=== PATIENT | male | born 1955 | race Caucasian/White ===

== ENCOUNTER 2019-09-20 09:57 | Outpatient (CLI) | payer BC, SELFPAY ==
--- NOTE | 2019-09-20 | XR_ITS ---
WS: [id number] CHEST 2 VIEWS HISTORY: LOG FELL ON HIM WEDNESDAY, CHEST WALL PAIN COMPARISON: 06/13/2019 Lungs: Clear with no abnormality. No pleural effusion or pneumothorax. Cardiac size: Normal. Mediastinum/Aorta: Mild atherosclerosis aorta. Bones: Mild thoracic spondylosis. No acute fractures are identified. XR/XR chest 2V* [id number] IMPRESSION: Mild atherosclerosis aorta. No rib fractures identified.
== END 2019-09-20 09:58 | disposition home or self-care (01) ==
LOC: RADOUTREAD 15:48
PROVIDERS: Family Provider Internal Medicine; PCP Internal Medicine; Visit Provider Internal Medicine
DX: I70.0 Atherosclerosis of aorta (principal); R07.89 Other chest pain

== ENCOUNTER 2019-10-09 10:39 | Outpatient (CLI) | payer BC, SELFPAY ==
--- NOTE | 2019-10-09 | XR_ITS ---
WS: [id number] SACRUM TECHNIQUE: 3 views of the sacrum and coccyx CLINICAL INFORMATION: LEFT LOW BACK PAIN COMPARISON: None. FINDINGS: Both hips are normal in appearance. Normal pubic rami. Normal visualized sacrum and sacrococcygeal ju nction. XR/XR sacrum coccyx min 2V [id number] IMPRESSION: Normal coccyx and sacrum.
--- NOTE | 2019-10-09 | XR_ITS ---
WS: [id number] LUMBAR SPINE TECHNIQUE: 5 views of the lumbar spine CLINICAL INFORMATION: LEFT LOW BACK PAIN COMPARISON: None. FINDINGS: Five [id number] lumbar vertebral bodies. Disc space narrowing throughout the lumbar spine L2-L3 L3-L4 L4-L5 and L5-S1. Moderate facet arthropathy lower lumbar spine. No acute compression fractures. No instability on flexion-extension. No spondylolisthesis. Visualized sacroiliac joints are normal. Normal visualized soft tissues. Partia lly visualized bowel gas pattern is normal. XR/XR lumbar spine min 4V [id number] IMPRESSION: Moderate spondylitic changes. No acute compression fractures.
== END 2019-10-09 10:40 | disposition home or self-care (01) ==
PROVIDERS: Family Provider Internal Medicine; PCP Internal Medicine; Visit Provider Nurse Practitioner Family
DX: Z76.89 Persons encountering health services in other specified circumstances (principal)

== ENCOUNTER 2019-12-18 08:44 | Outpatient (CLI) | payer BC, SELFPAY ==
--- NOTE | 2019-12-18 08:59 | CT_ITS ---
WS: [id number] CT ABDOMEN AND PELVIS WITH CONTRAST HISTORY: LLQ ABDOMINAL PAIN TECHNIQUE: Imaging performed of the abdomen and pelvis with IV contrast. Single phase imaging of the abdomen. Coronal and sagittal reformats are submitted. All CT scans at [facility] use at least one of these dose optimization techniques: automated exposure control; mA and/or kV adjustment per patient size (includes targeted exams where dose is matched to clinical indication); or iterativ e reconstruction. IV CONTRAST: Omnipaque 300; 95 mL IV. Oral contrast: Yes. DLP: 1153.1 mGycm COMPARISON: 12/20/2013 Lower thorax: Benign granuloma in the lingula. Heart is normal size. Small amount of oral contrast in the distal esophagus. Liver/biliary system: Normal size with no intrahepatic dilatation. Gallbladder: Normal. No gallstones or wall thickening. No pericholecystic fluid. Pancreas: Normal. Spleen: Normal. Adrenal glands: Normal. Right kidney: Cortical hypodensity measures 7 mm superior pole. No obstruction or perinephric strandi ng. Left kidney: A few scattered hypodensities are very small and cannot be characterized. No obstruction . Aorta: Mild atherosclerosis aorta. Calcification mild intimal thickening. No aneurysm. Lymphadenopathy: None. Free fluid: None. GI tract: Prior appendectomy. No GI tract obstruction or wall thickening. There are a few scattered d iverticula in the sigmoid colon without adjacent inflammation. Abdominal wall: Unremarkable abdominal wall. No hernia. Pelvis: Moderately distended urinary bladder with mild wall thickening. Inguinal canals are patent an d contains fat only. No adenopathy or fluid. Bones: Schmorl's node defect superior endplate of L4. Nondisplaced but incompletely healed posterior LEFT 10th, 11th and 12th rib fractures. Additional nondisplaced fractures involving the transverse pr ocesses on the LEFT of L1-L4. Nondisplaced fractures. CT/CT abdomen pelvis w con* [id number] IMPRESSION: 1. Mild sigmoid diverticulosis without acute diverticulitis. 2. No acute abdominal or pelvic abnormalities are identified. 3. Nondisplaced and nonacute LEFT 10th, 11th and 12th posterior rib fractures. 4. Nondisplaced and nonhealed transverse process fractures on the LEFT of L1-L 4.
[2019-12-18] MEDS: iohexol 300 mg/mL 50 mL Btl PO (09:47)
[2019-12-18] MEDS: iohexol 300 mg/mL 100 mL Btl IV (10:32)
== END 2019-12-18 08:45 | disposition home or self-care (01) ==
LOC: RADWPI 08:50
PROVIDERS: Family Provider Internal Medicine; PCP Internal Medicine; Visit Provider Internal Medicine
DX: R10.32 Left lower quadrant pain (principal); K57.30 Diverticulosis of large intestine without perforation or abscess without bleeding; S22.32XA Fracture of one rib, left side, initial encounter for closed fracture; S32.019A Unspecified fracture of first lumbar vertebra, initial encounter for closed fracture; S32.029A Unspecified fracture of second lumbar vertebra, initial encounter for closed fracture; S32.039A Unspecified fracture of third lumbar vertebra, initial encounter for closed fracture; S32.049A Unspecified fracture of fourth lumbar vertebra, initial encounter for closed fracture; X58.XXXA Exposure to other specified factors, initial encounter
CPT/HCPCS: 74177; Q9967

== ENCOUNTER 2020-05-15 02:13 | Emergency (ER) | payer MEDICARE, OTHER, SELFPAY ==
[2020-05-15] VITALS (8 sets, daily range): BP systolic 137–190; BP diastolic 59–82; PULSE 56–78; RESP 14–17; TEMP 36.9; O2SAT 95–98; BMI 27.9
--- NOTE | 2020-05-15 02:24 | CTR_ITS ---
PROCEDURE INFORMATION: Exam: CT Abdomen And Pelvis With Contrast Exam date and time: 05/15/2020 3:32 AM Age: 65 years old Clinical indication: Abdominal pain; Generalized; Prior surgery; Surgery type: Appy; Additional info: Abd pain TECHNIQUE: Imaging protocol: Computed tomography of the abdomen and pelvis with intravenous contrast. Radiation optimization: All CT scans at this facility use at least one of these dose optimization techniques: automated exposure control; mA and/or kV adjustment per patient size (includes targeted exams where dose is matched to clinical indication); or iterative reconstruction. Contrast material: OMNI 300; Contrast volume: 95 ml; Contrast route: INTRAVENOUS (IV); COMPARISON: CT abdomen pelvis w con* [id number] 12/18/2019 10:29 AM RADIATION DOSE METRICS: Total DLP (mGy-cm): 891.33 FINDINGS: Lungs: Dependent atelectasis lower lungs. Calcified granuloma lingula. Liver: Normal. No mass. Gallbladder and bile ducts: Normal. No calcified stones. No ductal dilation. Pancreas: Normal. No ductal dilation. Spleen: Normal. No splenomegaly. Adrenals: Normal. No mass. Kidneys and ureters: Small hypodensities within the kidneys bilaterally. Stomach and bowel: Surgical change at the level of the cecum. Enhancement of the mucosa of the stomach with mild fold prominence and accentuation of the wall of the distal stomach and equivocal Frannie luminal stranding at the pyloric level. Appendix: The appendix is not visualized. Intraperitoneal space: Unremarkable. No free air. No significant fluid collection. Vasculature: Calcified abdominal aorta. Lymph nodes: Unremarkable. No enlarged lymph nodes. Bladder: Unremarkable as visualized. Reproductive: Unremarkable as visualized. Bones/joints: Chronic fracture deformity lower posterior ribs. Chronic fracture deformity transverse process L2-L4 on the left. Degenerative change of the spine. Soft tissues: Unremarkable. CT/CT abdomen pelvis w con* [id number] IMPRESSION: 1. Mucosal enhancement and wall thickening of the stomach most prominent at the pylorus and proximal duodenum suggesting gastritis/duodenitis. 2. Stable hypodensities within the kidneys favoring small cysts.No further workup recommended. Radiation Dose CTDIVOL = (mGy): DLP = 891.33 (mGy-cm)
--- NOTE | 2020-05-15 02:24 | XRR_ITS ---
PROCEDURE INFORMATION: Exam: XR Chest, 1 View Exam date and time: 05/15/2020 2:59 AM Age: 65 years old Clinical indication: Type not specified; Patient HX: C/O chest pain starting 05/14/20; Additional info: Cp TECHNIQUE: Imaging protocol: XR of the chest Views: 1 view. COMPARISON: CR XR ribs LT mn 3V w CXR1V [id number] 05/01/2020 4:49 PM FINDINGS: Lungs: Unremarkable. No consolidation. Pleural space: Unremarkable. No pleural effusion. No pneumothorax. Heart/Mediastinum: Unremarkable. No cardiomegaly. Bones/joints: Unremarkable. XR/XR chest 1V portable [id number] IMPRESSION: No acute findings.
--- NOTE | 2020-05-15 02:25 | ECG_ITS ---
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 Measurements Intervals [place] Rate: 60 P: 11 AL: 191 QRS: 19 QRSD: 102 T: 43 QT: 416 QTc: 417 Interpretive Statements SINUS RHYTHM Compared to ECG 06/14/2019 03:21:55 Intraventricular conduction delay no longer present Electronically Signed On 05-15-2020 18:50:07 CDT by Lyudmila Maya M.D. [email or web address]
--- NOTE | 2020-05-15 02:26 | W.ED.ABDPA2 ---
HPI - Abdominal Pain General: Chief Complaint: Abdominal Pain Stated Complaint: abd/chest pain Time Seen by Provider: 05/15/20 02:19 Source: patient Mode of arrival: ambulatory Limitations: no limitations History of Present Illness: HPI narrative: 65-year-old male states that he started antibiotics yesterday Augmentin for an ear infection. He states since then he has had epigastric abdominal pain with nausea and vomiting. He states the pain is been sharp in nature and rates it a 3 out of 10 currently. He states he vomited 1 hour ago is improved since then. He states he has had some radiation of the pain into his chest before he vomits. He denies any chest pain or shortness of breath currently. MD elicited complaint: abdominal pain Associated Symptoms: Reports nausea and vomiting; Denies chills, dysuria and fever(s) Review of Systems Const: Denies: fever(s), chills, body aches or change in appetite Eyes: Denies: blurry vision or eye discomfort ENMT: Denies: throat pain or dental pain Card: Reports: chest pain Resp: Denies: dyspnea GI: Reports: abdominal pain, nausea and vomiting : Denies: dysuria Musc: Denies: neck pain or back pain Skin/Breast: Denies: rash Neuro: Denies: headache(s) Psych: Denies: depression Sascha/Lymph: Denies: easy bruising All/Imm: Denies: urticaria Physical Exam Const: COMMON NORMALS: no acute distress, patient oriented x3 and healthy appearing HENMT: COMMON NORMALS: normocephalic and atraumatic HEAD & SCALP: normocephalic and atraumatic Eye: COMMON NORMALS: Equal, round and reactive pupils present and EOMs intact bilaterally PUPIL: Yes Equal, round and reactive pupils present Neck/C-Spine: COMMON NORMALS: full ROM and supple Chest: COMMONS NORMALS: normal inspection of the chest and normal palpation of entire chest wall Resp: COMMON NORMALS: normal respiratory effort, No retractions, No use of accessory muscles and clear to auscultation bilaterally AUSCULTATION: clear to auscultation bilaterally Cardio: COMMON NORMALS: regular rate, regular rhythm and No murmurs present (Cardio) RATE: regular rate RHYTHM: regular rhythm GI: COMMON NORMALS: Normal to inspection, nondistended, normoactive bowel sounds present, Soft to palpation, non-tender and no masses PALPATION: Yes Soft to palpation Extremity: COMMON NORMALS: normal to inspection and full ROM Neuro: COMMON NORMALS: patient oriented x3, moves all extremities and no focal motor deficits Psych: COMMON NORMALS: mental status grossly normal, Normal thought process present and cooperative THOUGHT PROCESS: Normal thought process present Skin: COMMON NORMALS: no rashes or lesions noted and no wounds GENERAL SKIN EXAM: no rashes or lesions noted Course Vital Signs: Vital signs: Vital Signs Temperature 98.4 F 05/15/20 02:17 Pulse Rate 70 05/15/20 04:20 Respiratory Rate 15 05/15/20 04:20 Blood Pressure 173/68 05/15/20 04:20 Pulse Oximetry 98 05/15/20 04:20 MDM - Abdominal Pain MDM Narrative: Medical decision making narrative: Patient presents here with abdominal pain likely from duodenitis and gastritis. Patient's lab work here is normal and patient's pain is improved. We will start him on Flagyl along with Protonix. Patient is currently on Augmentin. Patient is to follow-up with Dr. Baires and return if worsening. Patient understands and agrees to plan. Lab Data: Labs: Lab Results 05/15/20 05/15/20 05/15/20 Range/Units 02:40 02:40 03:11 WBC 9.8 (4.0-10.0) 10^3/ uL RBC 5.02 (4.1-5.3) 10^6/u L Hgb 15.9 (11.7-16.6) g/dL Hct 47.4 (42.0-52.0) % MCV 94.4 H (80-94) fL MCH 31.7 (28.0-34.0) pg MCHC 33.5 (30.0-36.0) g/dL RDW 14.0 (12.1-15.1) % Plt Count 219 (130-400) 10^3/c mm MPV 9.9 (7.4-10.4) fL Neut % (Auto) 74.3 % Lymph % (Auto) 12.1 % [place] % (Auto) 7.2 % Eos % (Auto) 5.6 % Baso % (Auto) 0.4 % Neut # (Auto) 7.28 (1.8-7.7) 10^3/u L Lymph # (Auto) 1.2 (0.8-4.8) 10^3/u L [place] # (Auto) 0.7 (0.2-0.9) 10^3/u L Eos # (Auto) 0.6 (0.0-0.8) 10^3/u L Baso # (Auto) 0.0 (0.0-0.1) 10^3/u L Nucleated RBC % (a uto) 0 % Nucleated RBCs # 0.0 /100WBC Sodium 139 (136-145) mmol/L Potassium 3.9 (3.5-5.1) mmol/L Chloride 105 (98-107) mmol/L Carbon Dioxide 25 (22-29) mmol/L Anion Gap 12.9 (5-19) BUN 14 (8-23) mg/dL Creatinine 1.1 (0.7-1.2) mg/dL GFR Calculation 67.2 L (90-130) mL/min Glucose 122 H (65-115) mg/dL Calculated Osmolal ity 286 (285-295) mOsm/k g Calcium 9.8 (8.5-10.5) mg/dL Total Bilirubin 0.6 (0.15-1.2) mg/dL AST 21 (0-40) U/L ALT 18 (0-41) U/L Alkaline Phosphata se 94 (40-130) IU/L Total Protein 7.3 (6.6-8.7) g/dL Albumin 4.3 (3.5-5.2) g/dL Globulin 3.0 (1.3-4.6) g/dL Lipase 27 (13-60) U/L Urine Color Yellow (Yellow) Urine Appearance Clear (CLEAR) Urine pH 6 (5-7) Ur Specific Gravit y 1.015 (1.005-1.030) Urine Protein Neg (Negative) Urine Glucose (UA) Norm (Normal) Urine Ketones Negative (Negative) Urine Blood Neg (Negative) Urine Nitrate Negative (Negative) Urine Bilirubin Neg (NEGATIVE) Urine Urobilinogen Norm (Negative) mg/dL Ur Leukocyte Esha ase Negative (Negative) Imaging Data ^: CXR: Attestation: I personally reviewed and interpreted this imaging study as follows: My impression: no acute abnormality CT Chest: Radiologist's impression: [facility] [address] [place] [address] CT Scan Report Signed Patient: Lucius Leavitt Unit #: [id number] : 1955 Age/Sex: 65 / M ADM Date: 05/15/20 Loc: ER Room/Bed: Attending Dr: Ordering Provider/Ordering MD: Beata Richards MD Date of Service: 05/15/20 Procedure(s): CT abdomen pelvis w con* [id number] Accession Number(s): [id number] Report Number: [id number] PROCEDURE INFORMATION: Exam: CT Abdomen And Pelvis With Contrast Exam date and time: 05/15/2020 3:32 AM Age: 65 years old Clinical indication: Abdominal pain; Generalized; Prior surgery; Surgery type: Appy; Additional info: Abd pain TECHNIQUE: Imaging protocol: Computed tomography of the abdomen and pelvis with intravenous contrast. Radiation optimization: All CT scans at this facility use at least one of these dose optimization techniques: automated exposure control; mA and/or kV adjustment per patient size (includes targeted exams where dose is matched to clinical indication); or iterative reconstruction. Contrast material: OMNI 300; Contrast volume: 95 ml; Contrast route: INTRAVENOUS (IV); COMPARISON: CT abdomen pelvis w con* [id number] 12/18/2019 10:29 AM RADIATION DOSE METRICS: Total DLP (mGy-cm): 891.33 FINDINGS: Lungs: Dependent atelectasis lower lungs. Calcified granuloma lingula. Liver: Normal. No mass. Gallbladder and bile ducts: Normal. No calcified stones. No ductal dilation. Pancreas: Normal. No ductal dilation. Spleen: Normal. No splenomegaly. Adrenals: Normal. No mass. Kidneys and ureters: Small hypodensities within the kidneys bilaterally. Stomach and bowel: Surgical change at the level of the cecum. Enhancement of the mucosa of the stomach with mild fold prominence and accentuation of the wall of the distal stomach and equivocal Frannie luminal stranding at the pyloric level. Appendix: The appendix is not visualized. Intraperitoneal space: Unremarkable. No free air. No significant fluid collection. Vasculature: Calcified abdominal aorta. Lymph nodes: Unremarkable. No enlarged lymph nodes. Bladder: Unremarkable as visualized. Reproductive: Unremarkable as visualized. Bones/joints: Chronic fracture deformity lower posterior ribs. Chronic fracture deformity transverse process L2-L4 on the left. Degenerative change of the spine. Soft tissues: Unremarkable. CT/CT abdomen pelvis w con* [id number] IMPRESSION: 1. Mucosal enhancement and wall thickening of the stomach most prominent at the pylorus and proximal duodenum suggesting gastritis/duodenitis. 2. Stable hypodensities within the kidneys favoring small cysts.No further workup recommended. EKG Data ^: EKG 1: Attestation: I personally reviewed and interpreted this EKG as follows: EKG interpretation date: 05/15/20 EKG interpretation time: 02:28 Interpretation: nsr hr [address] or t wave abnormalities qrs 102 qtc 417 Discharge Plan Discharge Patient Disposition: Home Clinical Impression: Duodenitis Gastritis Qualifiers: Gastritis type: unspecified gastritis Chronicity: acute Gastritis bleeding: without bleeding Qualified Code(s): K29.00 - Acute gastritis without bleeding Condition: Stable Prescriptions: New Protonix 40 mg tablet,delayed release (DR/EC) 40 mg PO DAILY 56 Days RF: 0 Flagyl 500 mg tablet 500 mg PO Q8H 7 Days Qty: 21 RF: 0 Discharge Orders: Discharge Order (Routine); Ordered 05/15/20 Ordered By: Beata Richards Referrals: Jose Baires MD [Physician] - 4-7 days Quinten Murray DO [Primary Care Provider] - Discharge Diet: Advance as tolerated Discharge Activity: Resume usual activity Patient Instructions: Peptic Ulcer (ED), Gastritis (ED) Coding Level of Care Code 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
[2020-05-15] MEDS: morphine 4 mg/mL SDV 1 mL IVP ×2 (02:40→04:55)
[2020-05-15] MEDS: ondansetron 2 mg/ML SDV 2 mL 4 MG IVP (02:40)
[2020-05-15] MEDS: sodium chloride 0.9% 1,000 ML 999 ML IV (02:46)
--- NOTE | 2020-05-15 02:49 | PC.NURSE ---
xray in room
[2020-05-15 03:12] LABS: Basophils % 0.4 %; Eosinophils # 0.6 10^3/uL (0.0-0.8); Eosinophils % 5.6 %; Hematocrit 47.4 % (42.0-52.0); Hemoglobin 15.9 g/dL (11.7-16.6); Lymphocytes # 1.2 10^3/uL (0.8-4.8); Lymphocytes % 12.1 %; Mean Corpuscular HGB Conc 33.5 g/dL (30.0-36.0); Mean Corpuscular Hemoglobin 31.7 pg (28.0-34.0); Mean Corpuscular Volume 94.4 fL (80-94); Mean Platelet Volume 9.9 fL (7.4-10.4); Monocytes # 0.7 10^3/uL (0.2-0.9); Monocytes % 7.2 %; Neutrophils # 7.28 10^3/uL (1.8-7.7); Neutrophils % 74.3 %; Nucleated Red Blood Cells % 0 %; Platelet Count 219 10^3/cmm (130-400); Red Blood Count 5.02 10^6/uL (4.1-5.3); White Blood Count 9.8 10^3/uL (4.0-10.0)
[2020-05-15 03:20] LABS: Alanine Aminotransferase 18 U/L (0-41); Albumin Level 4.3 g/dL (3.5-5.2); Alkaline Phosphatase 94 IU/L (40-130); Anion Gap 12.9 (5-19); Aspartate Amino Transferase 21 U/L (0-40); Blood Urea Nitrogen 14 mg/dL (8-23); Calcium 9.8 mg/dL (8.5-10.5); Carbon Dioxide 25 mmol/L (22-29); Chloride 105 mmol/L (98-107); Glomerular Filtration Rate 67.2 mL/min (90-130); Glucose 122 mg/dL (65-115); Lipase 27 U/L (13-60); Osmolality Calculated 286 mOsm/kg (285-295); Potassium 3.9 mmol/L (3.5-5.1); Sodium 139 mmol/L (136-145); Total Bilirubin 0.6 mg/dL (0.15-1.2); Total Protein 7.3 g/dL (6.6-8.7)
[2020-05-15 03:31] LABS: Add Urine Microscopic? NO
[2020-05-15 03:41] LABS: Bilirubin Urine Neg (NEGATIVE); Blood Urine Neg (Negative); Glucose Urine UA Norm (Normal); Ketones Urine Negative (Negative); Leukocyte Esterase Urine Negative (Negative); Nitrate Urine Negative (Negative); Protein Urine Neg (Negative); Specific Gravity, Urine 1.015 (1.005-1.030); Urine Appearance Clear (CLEAR); Urine Color Yellow (Yellow); Urobilinogen Urine Norm (Negative); pH Urine 6 (5-7)
--- NOTE | 2020-05-15 03:47 | PC.NURSE ---
patient to CT
[2020-05-15] MEDS: iohexol 300 mg/mL 100 mL Btl IV (03:49)
--- NOTE | 2020-05-15 03:57 | PC.NURSE ---
back from CT
[2020-05-15] MEDS: lidocaine 2% viscous 15 ML, aluminum-mag hydrox-simethicon 30 ML, sucralfate oral liq 1 GM PO (04:19)
--- NOTE | 2020-05-15 11:57 | DCPLANNER ---
epic manager had message to schedule a follow up appointment for patient with [facility]. epic manager called the clinic, spoke with Indu, gave clinic patients information. epic manager was told that patients information would be printed and reviewed. Clinic will call patient with appointment information.
--- NOTE | 2020-05-24 07:36 | DCPLANNER ---
Patient has a follow up appointment scheduled for Wednesday, May 24, 2020 at 11:[address] Baires at [facility]. Clinic will call patient with appointment information.
--- NOTE | 2020-05-30 11:20 | DCPLANNER ---
Patient had a follow up appointment scheduled for 05.24.20 with [facility] - patient did attend appointment.
== END 2020-05-15 05:30 | disposition home or self-care (01) ==
PROVIDERS: Emergency Provider Emergency Medicine; PCP Internal Medicine
DX: K29.80 Duodenitis without bleeding (principal); K29.00 Acute gastritis without bleeding
CPT/HCPCS: 12345; 71045; 74177; 80053; 81003; 83690; 85025; 93005; 96360; 96361; 96374; 96375; 96376; 99284; J2270; J2405; J7030; Q9967

== ENCOUNTER 2020-05-17 13:13 | Outpatient (CLI) | payer MEDICARE, OTHER, SELFPAY ==
--- NOTE | 2020-05-17 13:24 | CT_ITS ---
WS: [id number] CT CHEST TECHNIQUE: Contrast enhanced CT of the chest with coronal and sagittal reformatted images. CLINICAL INFORMATION: MEDIALSTINAL WIDENING COMPARISON: Radiograph May 15, 2020 DLP: 968.[address] scans at [facility] use at least one of these dose optimization techniques: automat ed exposure control; mA and/or kV adjustment per patient size (includes targeted exams where dose is matched to clinical indication); or iterative reconstruction. FINDINGS: Mild chronic emphysematous changes. No acute pulmonary infiltrates. A few calcified granulomas. Sligh t atelectasis in the lung bases. Noncalcified groundglass nodule right upper lobe measuring 5 mm. Tin y subpleural pulmonary nodule right lower lobe measuring 1-2 mm. No other suspicious pulmonary parenc hymal opacities. No acute pulmonary infiltrates. No pleural fluid. No mediastinal or hilar lymphadenopathy. No axillary lymphadenopathy. Thyroid gland appears normal. Thoracic aorta appears normal. Proximal main pulmonary arteries are nor mal. Normal GE junction. Chronic rib fractures left 10th and 11th ribs CT/CT chest w con* [id number] IMPRESSION: 1. No acute pulmonary infiltrates. No pleural fluid. 2. Noncalcified pulmonary nodule right upper lobe measuring 5 mm. Recommend 12 month follow-up. 3. Slight atelectasis in the lung bases. 4. No mediastinal or hilar lymphadenopathy. 5. Normal caliber thoracic aorta. 6. Chronic left 10th and 11th left rib fractures.
[2020-05-17] MEDS: iohexol 300 mg/mL 100 mL Btl IV (13:40)
== END 2020-05-17 13:14 | disposition home or self-care (01) ==
LOC: RADWPI 13:21
PROVIDERS: Family Provider Internal Medicine; PCP Internal Medicine; Visit Provider Physician Assistant
DX: R93.89 Abnormal findings on diagnostic imaging of other specified body structures (principal); R91.1 Solitary pulmonary nodule; J98.11 Atelectasis; S22.42XA Multiple fractures of ribs, left side, initial encounter for closed fracture; X58.XXXA Exposure to other specified factors, initial encounter
CPT/HCPCS: 71260; Q9967

== ENCOUNTER 2021-09-09 13:35 | Emergency (ER) | payer MEDICARE, OTHER, SELFPAY ==
[2021-09-09 13:49] VITALS: BP 127/73; PULSE 68; RESP 18; TEMP 36.7; O2SAT 97; BMI 28.7
--- NOTE | 2021-09-09 14:14 | XR_ITS ---
WS: [id number] Left shoulder, 3 views, 09/09/2021 Clinical Data: trauma Comparison: None. Findings: No fractures or dislocations are seen. The AC joint is normal. The adjacent left clavicle, left scapu la and ribs are normal. The soft tissues are unremarkable. XR/XR shoulder LT min 2V* [id number] Impression: Negative left shoulder.
--- NOTE | 2021-09-09 14:14 | XR_ITS ---
WS: [id number] Chest with left rib detail, 09/09/2021 Clinical Data: trauma Comparison: Portable chest, 05/15/2020 Findings: The lungs show no nodules, masses, or effusions. The heart is normal. No pneumonia or pneumothorax is seen. The aortic arch and descending thoracic aorta show tortuosity. The ribs are intact. No rib fractures seen. No subcutaneous emphysema is present. XR/XR ribs LT mn 3V w CXR1V [id number] Impression: Negative chest with left rib detail.
[2021-09-09 16:08] LABS: Basophils % 0.3 %; Eosinophils % 0.1 %; Hematocrit 41.1 % (42.0-52.0); Hemoglobin 13.7 g/dL (11.7-16.6); Lymphocytes # 1.5 10^3/uL (0.8-4.8); Lymphocytes % 12.2 %; Mean Corpuscular HGB Conc 33.3 g/dL (30.0-36.0); Mean Corpuscular Hemoglobin 30.7 pg (28.0-34.0); Mean Corpuscular Volume 92.2 fl (80-94); Mean Platelet Volume 10.3 fL (7.4-10.4); Monocytes # 0.5 10^3/uL (0.2-0.9); Monocytes % 3.9 %; Neutrophils # 10.06 10^3/uL (1.8-7.7); Neutrophils % 83.3 %; Nucleated Red Blood Cells % 0 %; Platelet Count 209 10^3/cmm (130-400); Red Blood Count 4.46 10^6/uL (4.1-5.3); Red Cell Distribution Width 15.4 % (12.1-15.1); White Blood Count 12.1 10^3/uL (4.0-10.0)
[2021-09-09 16:28] LABS: Alanine Aminotransferase 16 U/L (0-41); Albumin Level 4.1 g/dL (3.5-5.2); Alkaline Phosphatase 64 IU/L (40-130); Anion Gap 16.9 (5-19); Aspartate Amino Transferase 15 U/L (0-40); Blood Urea Nitrogen 12 mg/dL (8-23); Calcium 8.4 mg/dL (8.5-10.5); Carbon Dioxide 24 mmol/L (22-29); Chloride 103 mmol/L (98-107); Creatinine Clr Calc Pharmacy 82.3118; Globulin 3.3 g/dL (1.3-4.6); Glomerular Filtration Rate 74.8 mL/min (90-130); Glucose 125 mg/dL (65-115); Osmolality Calculated 289 mOsm/kg (285-295); Potassium 4.9 mmol/L (3.5-5.1); Sodium 139 mmol/L (136-145); Total Bilirubin 0.3 mg/dL (0.15-1.2); Total Protein 7.4 g/dL (6.6-8.7)
--- NOTE | 2021-09-09 17:00 | W.ED.TRAUMA ---
HPI - Trauma General: Chief Complaint: Trauma Stated Complaint: Fell of tractor on to his shoulder/ heard a pop Time Seen by Provider: 09/09/21 16:57 History of Present Illness: HPI narrative: 66-year-old male presents emergency room complaining of left rib pain left shoulder pain. He fell while getting off of a small tractor states it knocked the wind out of him. He denies any other injuries no loss of consciousness. Sometime after that today he was pulling on a chainsaw cord just started and felt a popping sensation in his left ribs has persistent pain there particularly when moving. He denies any difficulty breathing. No recent fever sweats or chills. MD complaint: fall and injury Onset (ago): hour(s) Loss of Consciousness: no Location: chest (Left lateral chest wall) Location - Extremities: Left: shoulder Severity: mild Context: fall Associated symptoms: Denies abdominal pain, anorexia, back pain, chest pain, chills, confusion, cough, dental pain, diaphoresis, difficulty breathing, dizziness, epistaxis, fever(s), headache(s), nausea, seizures, short of breath, syncope, visual disturbances, vomiting or weakness Review of Systems Const: Denies: fever(s), chills or diaphoresis ENMT: Denies: dental pain or epistaxis Card: Denies: chest pain or syncope Resp: Denies: dyspnea, productive cough or non-productive cough GI: Denies: abdominal pain, nausea or vomiting : Denies: flank pain, dysuria, urinary frequency or urinary urgency Musc: Denies: back pain Skin/Breast: Denies: rash or pruritus Neuro: Denies: headache(s), dizziness or confusion PFS ED PFSH: Medical History Gastritis Surgical History H/O circumcision H/O colonoscopy 6 months ago History of appendectomy History of tonsillectomy Family History Other Diabetes Hypertension Denies family history of CAD (coronary artery disease) Anesthesia complication Bleeding disorder Cancer Social History Smoking and tobacco status: current every day smoker Alcohol intake: never Household members: spouse Marital status: Current occupational status: employed History of recent travel: No Physical Exam Const: COMMON NORMALS: no acute distress GENERAL APPEARANCE: cooperative and comfortable ORIENTATION/CONSCIOUSNESS: Yes awake, Yes oriented to person, Yes oriented to place and Yes oriented to time HENMT: COMMON NORMALS: normocephalic and atraumatic HEAD & SCALP: normocephalic and atraumatic Eye: COMMON NORMALS: Equal, round and reactive pupils present, EOMs intact bilaterally, conjunctivae normal and no scleral icterus CONJUNCTIVA: Yes conjunctivae normal PUPIL: Yes Equal, round and reactive pupils present Neck/C-Spine: COMMON NORMALS: full ROM, no lymphadenopathy, supple and no JVD Lymph: LYMPHATIC: no lymphadenopathy noted and no lymphedema noted Resp: COMMON NORMALS: normal respiratory effort, No retractions, No use of accessory muscles and clear to auscultation bilaterally AUSCULTATION: clear to auscultation bilaterally Cardio: COMMON NORMALS: no JVD, regular rate, regular rhythm and No murmurs present (Cardio) RATE: regular rate RHYTHM: regular rhythm GI: COMMON NORMALS: Soft to palpation and No hepatosplenomegaly present AUSCULTATION: Yes normoactive bowel sounds PALPATION: Yes Soft to palpation, No Tenderness to palpation present (GI), No Guarding due to palpation present (GI) and Yes No hepatosplenomegaly present Extremity: COMMON NORMALS: normal to inspection, capillary refill normal, no clubbing, cyanosis or edema, no calf tenderness and no pedal edema Neuro: SENSORIUM/ORIENTATION: Yes oriented to person, Yes oriented to place and Yes oriented to time Skin: COMMON NORMALS: no rashes or lesions noted GENERAL SKIN EXAM: no rashes or lesions noted Course Vital Signs: Vital signs: Vital Signs Temperature 98.1 F 09/09/21 13:49 Pulse Rate 68 09/09/21 13:49 Respiratory Rate 18 09/09/21 13:49 Blood Pressure 127/73 09/09/21 13:49 Pulse Oximetry 97 09/09/21 13:49 MDM - Trauma MDM Narrative: Medical decision making narrative: Labs and imaging reviewed. No acute fracture of the ribs or shoulder. Ice as needed to the affected areas diclofenac as needed follow-up with primary care if not having improvement. Avoid work above shoulder level for the next 7 to 10 days. Lab Data: Labs: Lab Results 09/09/21 09/09/21 15:59 15:59 WBC 12.1 10^3/uL H 10 ^3/uL (4.0-10.0) RBC 4.46 10^6/uL 10^6 /uL (4.1-5.3) Hgb 13.7 g/dL g/dL (11.7-16.6) Hct 41.1 % L % (42.0-52.0) MCV 92.2 fl fl (80-94) MCH 30.7 pg pg (28.0-34.0) MCHC 33.3 g/dL g/dL (30.0-36.0) RDW 15.4 % H % (12.1-15.1) Plt Count 209 10^3/cmm 10^3 /cmm (130-400) MPV 10.3 fL fL (7.4-10.4) Neut % (Auto) 83.3 % % Lymph % (Auto) 12.2 % % Harris % (Auto) 3.9 % % Eos % (Auto) 0.1 % % Baso % (Auto) 0.3 % % Neut # (Auto) 10.06 10^3/uL H 1 0^3/uL (1.8-7.7) Lymph # (Auto) 1.5 10^3/uL 10^3/ uL (0.8-4.8) Harris # (Auto) 0.5 10^3/uL 10^3/ uL (0.2-0.9) Eos # (Auto) 0.0 10^3/uL 10^3/ uL (0.0-0.8) Baso # (Auto) 0.0 10^3/uL 10^3/ uL (0.0-0.1) Nucleated RBC % (a uto) 0 % % Nucleated RBCs # 0.0 /100WBC /100W BC Sodium 139 mmol/L mmol/L (136-145) Potassium 4.9 mmol/L mmol/L (3.5-5.1) Chloride 103 mmol/L mmol/L (98-107) Carbon Dioxide 24 mmol/L mmol/L (22-29) Anion Gap 16.9 (5-19) BUN 12 mg/dL mg/dL (8-23) Creatinine 1.0 mg/dL mg/dL (0.7-1.2) GFR Calculation 74.8 mL/min L mL/ min (90-130) Glucose 125 mg/dL H mg/dL (65-115) Calculated Osmolal ity 289 mOsm/kg mOsm/ kg (285-295) Calcium 8.4 mg/dL L mg/dL (8.5-10.5) Total Bilirubin 0.3 mg/dL mg/dL (0.15-1.2) AST 15 U/L U/L (0-40) ALT 16 U/L U/L (0-41) Alkaline Phosphata se 64 IU/L IU/L (40-130) Total Protein 7.4 g/dL g/dL (6.6-8.7) Albumin 4.1 g/dL g/dL (3.5-5.2) Globulin 3.3 g/dL g/dL (1.3-4.6) Discharge Plan Discharge Patient Disposition: Home Clinical Impression: Fall, Rib pain on left side, Left shoulder pain Condition: Stable Prescriptions: New diclofenac sodium 75 mg tablet,delayed release (DR/EC) 75 mg PO Q12H PRN (Reason: pain) Qty: 20 RF: 0 No Action metronidazole [Flagyl] 500 mg tablet 500 mg PO Q8H RF: 0 sucralfate [Carafate] 1 gram tablet 1 gm PO TID Qty: 90 RF: 2 pantoprazole 40 mg tablet,delayed release (DR/EC) See Rx Instructions .ROUTE .COMPLEX Qty: 60 RF: 0 Discharge Orders: Discharge ED (Routine); Ordered 09/09/21 Ordered By: Obed Villavicencio Referrals: Quinten Murray DO [Primary Care Provider] - Discharge Diet: Usual diet Discharge Activity: Limit activity as instructed Patient Instructions: Opioid Safety Activity Restrictions/Additional Instructions: Ice and pain medications as prescribed. Can ice the shoulder in the rib area that hurts. Avoid heat. If not improving follow-up with your primary care doctor. Do not work above shoulder level for the next 10 to 14 days with the left shoulder. 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
[2021-09-09 17:25] VITALS: BP 127/73; PULSE 68; RESP 18; TEMP 36.7; O2SAT 97
== END 2021-09-09 17:27 | disposition home or self-care (01) ==
PROVIDERS: Physician Assistant; Emergency Provider Family Medicine; PCP Internal Medicine
DX: M25.512 Pain in left shoulder (principal); R07.81 Pleurodynia; F17.210 Nicotine dependence, cigarettes, uncomplicated; W17.89XA Other fall from one level to another, initial encounter
CPT/HCPCS: 71101; 73030; 80053; 85025; 99283

== ENCOUNTER 2022-01-14 12:16 | Outpatient (CLI) | payer MEDICARE, SELFPAY ==
--- NOTE | 2022-01-14 12:43 | USCV_ITS ---
Lucius Leavitt Age: 66 Gender: M : 1955 Exam Date: 01/14/2022 12:57 Ordering Phys: Aishwarya Haney Technologist: Exam Location[place] [facility] [place]: lt leg pain PROCEDURES: Venous duplex imaging was performed in only the left lower extremity. The following venous structures were evaluated: common femoral vein, profunda vein, proximal portion of the greater saphenous vein, superficial femoral vein, and the popliteal vein. In addition, the posterior tibial and peroneal trunk were evaluated. FINDINGS: Normal 2-D Doppler and augmentation and compressibility throughout the lower extremity venous structures. Additional imaging through the proximal calf veins also reveals no thrombus. Limited evaluation of the greater saphenous vein is patent with no thrombus.. CONCLUSIONS No evidence of left lower extremity DVT. No visualized bakers cyst Asael Agustin MD (Electronically Signed) Final Date: 14 Jan 2022 15:08 Amended: 23 Jan 2022 08:45 C
== END 2022-01-14 12:17 | disposition home or self-care (01) ==
LOC: RAD 12:25
PROVIDERS: PCP Internal Medicine; Visit Provider Internal Medicine
DX: M79.662 Pain in left lower leg (principal); M79.89 Other specified soft tissue disorders
CPT/HCPCS: 93971

== ENCOUNTER 2023-02-10 18:18 | Emergency (ER) | payer MEDICARE, SELFPAY ==
[2023-02-10 18:22] VITALS: BP 154/78; PULSE 75; RESP 16; TEMP 37.3; O2SAT 95; BMI 30.1
--- NOTE | 2023-02-10 18:26 | ED_ITS ---
HPI - Head Injury General: Chief complaint: Head Injury Stated complaint: trampled by cow, left side injuries Time Seen by Provider: 02/10/23 18:26 History of Present Illness: Mr. Leavitt is a 67-year-old gentleman presenting to the emergency department for trauma. He had a cattle run through a gate and knocked the gate onto home and trampled him. He did have head strike on the back of his head with loss of consciousness and postevent confusion. Currently complaining of headache, left- sided thoracic and abdominal pain, left hip pain. Onset (ago): minute(s) Place: home Loss of Consciousness: yes Location of injury: occipital Severity: moderate Other Injuries: lower extremity and other Review of Systems General: Reports: 10 or more systems reviewed and unremarkable except in HPI and below PFSH ED PFSH: Medical History Gastritis Surgical History H/O circumcision H/O colonoscopy 6 months ago History of appendectomy History of tonsillectomy Family History Other Diabetes Hypertension Denies family history of CAD (coronary artery disease) Anesthesia complication Bleeding disorder Cancer Social History Smoking and tobacco status: current every day smoker Alcohol intake: never Substance/Drug Use: never Household members: spouse Marital status: Current occupational status: employed Physical Exam Const: COMMON NORMALS: alert GENERAL APPEARANCE: cooperative and well developed HENMT: COMMON NORMALS: normocephalic HEAD & SCALP: normocephalic OTHER: Contusion to posterior head with subcutaneous edema/hematoma. No nelson signs or raccoon eyes. No hemotympanum. No otorrhea or rhinorrhea. Jaw alignment normal. Dentition baseline. No obvious bony step-offs. No septal hematoma. No evidence of ocular entrapment. Eye: COMMON NORMALS: conjunctivae normal CONJUNCTIVA: Yes conjunctivae normal SCLERA: sclerae normal Neck/C-Spine: COMMON NORMALS: supple GENERAL: Yes trachea midline Chest: OTHER: Left chest wall tenderness Resp: COMMON NORMALS: clear to auscultation bilaterally EFFORT & INSPECTION: Yes able to speak in complete sentences AUSCULTATION: clear to auscultation bilaterally Cardio: COMMON NORMALS: regular rate and regular rhythm RATE: regular rate RHYTHM: regular rhythm GI: COMMON NORMALS: Soft to palpation PALPATION: Yes Soft to palpation and No Tenderness to palpation present (GI) Extremity: GENERAL: Yes normal exam except as noted and No edema Neuro: COMMON NORMALS: moves all extremities SENSORIUM/ORIENTATION: Yes alert and No Orientation impaired OTHER: Confusion regarding event Skin: NARRATIVE SKIN EXAM: Scattered superficial abrasions and lacerations. No active hemorrhage. Course Vital Signs: Vital signs: Vital Signs Temperature 99.1 F 02/10/23 18:22 Pulse Rate 67 02/10/23 21:00 Respiratory Rate 18 02/10/23 21:00 Blood Pressure 110/61 02/10/23 21:00 Pulse Oximetry 92 02/10/23 21:00 Oxygen Delivery Me thod Room Air 02/10/23 19:25 MDM - Head Injury Medcial Decision Making 67-year-old gentleman presenting after being trampled by cattle. Head to toe exam performed. Given provided clinical history there is no indication for laboratory studies at this time. CT imaging with multiple chronic appearing changes and incidental findings which were discussed with the patient. Patient is noted to have deformities of the left fifth and sixth costochondral junctions however there is no correlating tenderness in this region. Patient treated with antiemetic, analgesia, Tdap updated. On reassessment patient feels improved. The results of ED evaluation were discussed with the patient including prescriptions and/or symptomatic cares (if applicable) including appropriate and responsible use, followup plan, and return precautions. The patient verbalized understanding and felt safe for discharge. Medical Records I reviewed the patient's medical records. Lab Data I reviewed the patient's lab results. Radiology Impressions Cervical Spine CT 02/10/23 18:34 IMPRESSION: 1. Negative for fracture or dislocation. 2. Multilevel degenerative disc space narrowing and productive degenerative endplate changes. Chest/Abdomen/Pelvis CT 02/10/23 18:34 IMPRESSION: 1. Deformities of the left 5th and 6 costochondral junctions that are new compared with the prior CT scan. There is no surrounding soft tissue swelling, it is uncertain whether this is related to the patient's current trauma. Recommend correlation with symptoms of pain in these areas. 2. Dependent atelectasis in the lungs bilaterally. 3. Noncalcified nodule in the right upper lobe with an average measurement of 5 mm is stable compared with 05/17/2020. Stable pulmonary nodule(s) for IMPRESSION: 1. Mild left gluteal subcutaneous contusion. 2. Incidental/nonacute findings are listed in the report. Femur X-Ray 02/10/23 18:34 IMPRESSION: 1. No acute fracture of the left femur. Followup imaging recommended in 7-14 days if clinical concern for fracture persists. 2. Patient has had a previous left knee arthroplasty. No evidence for loosening of the visualized surgical hardware. Head CT 02/10/23 18:34 IMPRESSION: Negative for intracranial hemorrhage or mass effect. Discharge Plan Discharge Patient Disposition: Home Clinical Impression: Victim of trampling from animal, Closed head injury, Concussion with loss of consciousness <= 30 min, Multiple abrasions, Contusion of multiple sites Condition: Stable Prescriptions: New oxycodone 5 mg tablet 5 mg PO Q4H PRN (Reason: pain) Qty: 10 0RF ondansetron 4 mg tablet,disintegrating 4 mg PO Q8H PRN (Reason: nausea and vomiting) Qty: 15 0RF No Action metronidazole [Flagyl] 500 mg tablet 500 mg PO Q8H sucralfate [Carafate] 1 gram tablet 1 gm PO TID Qty: 90 2RF pantoprazole 40 mg tablet,delayed release (DR/EC) See Rx Instructions .ROUTE .COMPLEX Qty: 60 0RF Dose Instruction: Take 1 tablet by mouth twice daily for 30 days Rx Instructions: Take 1 tablet by mouth twice daily for 30 days diclofenac sodium 75 mg tablet,delayed release (DR/EC) 75 mg PO Q12H PRN (Reason: pain) Qty: 20 0RF Discharge Orders: Discharge ED (Routine); Ordered 02/10/23 Ordered By: Dar Mcgraw Referrals: Quinten Murray DO [Primary Care Provider] - Discharge Diet: Usual diet Discharge Activity: Increase activity as tolerated Patient Instructions: Head Injury (ED), Contusion in Adults (ED), Abrasion (ED), Opioid Safety Activity Restrictions/Additional Instructions: Thank you for visiting the emergency department. You were seen and evaluated for injuries related to cow and metal gate. No acute internal injuries were identified. No broken bones were identified. The most likely cause of your symptoms is abrasions and contusions with closed head injury/traumatic brain injury. You may use laxc-pgu-[id number] medications such as acetaminophen and ibuprofen for pain however please do not exceed the daily recommended dosage as listed on the packaging and please keep in mind that many namebrand medications contain the same active ingredients. Please avoid these medications if previously instructed to do so by another physician due to other underlying medical condition. Please keep wounds clean and dry and watch for evidence of infection. Return to the emergency department for uncontrolled pain, evidence of infection, or anything else that you are concerned about and feel needs emergency department evaluation. 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
--- NOTE | 2023-02-10 18:34 | CTR_ITS ---
PROCEDURE INFORMATION: Exam: CT Head Without Contrast Exam date and time: 02/10/2023 6:52 PM Age: 67 years old Clinical indication: Injury or trauma; Other: Trampled; Blunt trauma (contusions or hematomas); Additional info: Trampled by cow, loc TECHNIQUE: Imaging protocol: Computed tomography of the head without contrast. Radiation optimization: All CT scans at this facility use at least one of these dose optimization techniques: automated exposure control; mA and/or kV adjustment per patient size (includes targeted exams where dose is matched to clinical indication); or iterative reconstruction. REPORTING DATA: Count of CT and Cardiac NM exams in prior 12 months: This patient has received 0 known CTs and 0 known cardiac nuclear medicine studies in the 12 months prior to the current study. COMPARISON: No relevant prior studies available. RADIATION DOSE METRICS: Total DLP (mGy-cm): 1227 FINDINGS: Brain: Mild diffuse white matter disease likely reflecting chronic microvascular ischemic changes. Cerebral ventricles: No ventriculomegaly. Paranasal sinuses: Visualized sinuses are unremarkable. No fluid levels. Mastoid air cells: Visualized mastoid air cells are well aerated. Bones/joints: Unremarkable. No acute fracture. Soft tissues: Unremarkable. CT/CT head wo con* [id number] IMPRESSION: Negative for intracranial hemorrhage or mass effect.
--- NOTE | 2023-02-10 18:34 | XRR_ITS ---
PROCEDURE INFORMATION: Exam: XR Left Femur Exam date and time: 02/10/2023 6:42 PM Age: 67 years old Clinical indication: Pain; Thigh; Left; Additional info: Trampled by cow TECHNIQUE: Imaging protocol: Radiologic exam of the left femur. Views: 2 views. COMPARISON: No relevant prior studies available. FINDINGS: Bones/joints: Patient has had a previous left knee arthroplasty. No evidence for loosening of the visualized surgical hardware. No acute fracture. No dislocation. Normal bone mineralization. Soft tissues: No soft tissue swelling. No radiopaque foreign body. XR/XR femur LT min 2V* [id number] IMPRESSION: 1. No acute fracture of the left femur. Followup imaging recommended in 7-14 days if clinical concern for fracture persists. 2. Patient has had a previous left knee arthroplasty. No evidence for loosening of the visualized surgical hardware.
--- NOTE | 2023-02-10 18:34 | CTR_ITS ---
PROCEDURE INFORMATION: Exam: CT Chest With Contrast; Diagnostic Exam date and time: 02/10/2023 6:59 PM Age: 67 years old Clinical indication: Injury or trauma; Other: Trampled by cow; Blunt; Generalized; Prior surgery; Surgery date: 6+ months; Surgery type: Appy; Additional info: Trampled by cow, L sided injuries/pain TECHNIQUE: Imaging protocol: Diagnostic computed tomography of the chest with contrast. Sagittal and coronal reformatted images were created and reviewed. Radiation optimization: All CT scans at this facility use at least one of these dose optimization techniques: automated exposure control; mA and/or kV adjustment per patient size (includes targeted exams where dose is matched to clinical indication); or iterative reconstruction. Contrast material: OMNI 350; Contrast volume: 100 ml; Contrast route: INTRAVENOUS (IV); REPORTING DATA: Count of CT and Cardiac NM exams in prior 12 months: This patient has received 0 known CTs and 0 known cardiac nuclear medicine studies in the 12 months prior to the current study. COMPARISON: CT chest w con* [id number] 05/17/2020 1:38 PM RADIATION DOSE METRICS: Total DLP (mGy-cm): 1278 FINDINGS: Trachea: Tracheobronchial structures are patent. Lungs: Dependent atelectasis in the lungs bilaterally. Noncalcified nodule in the right upper lobe with an average measurement of 5 mm is stable compared with 05/17/2020 (series 4, image 20). Stable granulomas in the left lingula. Pleural spaces: No pneumothorax. No pleural effusion. Heart: Stable mild enlargement of the heart. Stable calcification of the aortic valve. Esophagus: The esophagus is unremarkable. Mediastinal space: No mediastinal hematoma. No pneumomediastinum. Lymph nodes: No lymphadenopathy. Calcified lymph nodes in the left hilum. Vasculature: Stable mild atherosclerotic changes in the visualized arteries. No evidence for aortic aneurysm or aortic dissection. Pulmonary arteries are unremarkable. Pulmonary veins are unremarkable. No extravasation of contrast from the thoracic vessels. Bones/joints: Deformities of the left 5th and 6 costochondral junctions that are new compared with the prior CT scan. There is no surrounding soft tissue swelling, it is uncertain whether this is related to the patient's current trauma. Multilevel degenerative changes of varying severity in the visualized spine. Old fractures of the posterior left 10th and 11th ribs. Soft tissues: No acute abnormality in the extrathoracic soft tissues. Stable small sebaceous cysts in the posterior chest wall. which no further follow-up is recommended. (Reference: Rose) 4. Incidental/nonacute findings are listed in the report. REFERENCES: cierra Rush al. Guidelines for Management of Incidental Pulmonary Nodules Detected on CT Images: From the Fleischner Society 2017. Radiology. 2017;284(1):228-243. PROCEDURE INFORMATION: Exam: CT Abdomen And Pelvis With Contrast Exam date and time: 02/10/2023 6:59 PM Age: 67 years old Clinical indication: Injury or trauma; Other: Trampled by cow; Blunt; Generalized; Prior surgery; Surgery date: 6+ months; Surgery type: Appy; Additional info: Trampled by cow, L sided injuries/pain TECHNIQUE: Imaging protocol: Computed tomography of the abdomen and pelvis with contrast. Radiation optimization: All CT scans at this facility use at least one of these dose optimization techniques: automated exposure control; mA and/or kV adjustment per patient size (includes targeted exams where dose is matched to clinical indication); or iterative reconstruction. Contrast material: OMNI 350; Contrast volume: 100 ml; Contrast route: INTRAVENOUS (IV); REPORTING DATA: Count of CT and Cardiac NM exams in prior 12 months: This patient has received 0 known CTs and 0 known cardiac nuclear medicine studies in the 12 months prior to the current study. COMPARISON: CT abdomen pelvis w con* [id number] 05/15/2020 3:42 AM RADIATION DOSE METRICS: Total DLP (mGy-cm): 1278 FINDINGS: Liver: The liver is unremarkable. Gallbladder and bile ducts: The gallbladder is unremarkable. No biliary ductal dilatation. Pancreas: The pancreas is unremarkable. No pancreatic ductal dilatation. Spleen: The spleen is unremarkable. Adrenal glands: The right and left adrenal glands are unremarkable. Kidneys and ureters: The right and left kidneys are unremarkable. The right and left ureters are unremarkable. Stomach and bowel: Scattered diverticula in the sigmoid colon. No evidence for diverticulitis. No acute abnormality in the small bowel. No acute abnormality in the stomach. Appendix: Stable changes consistent with a previous appendectomy. Intraperitoneal space: No free intraperitoneal air. No ascites. No loculated fluid collections to suggest an abscess. Vasculature: Stable mild atherosclerotic calcifications in the visualized arteries. No evidence for aortic aneurysm or aortic dissection. Hepatic veins, portal veins, splenic vein, and SMV are patent. No extravasation of contrast from the abdominopelvic vessels. Lymph nodes: No lymphadenopathy. Urinary bladder: Unremarkable as visualized. Reproductive: Stable nonspecific parenchymal calcifications in the prostate gland. Bones/joints: Stable old fractures of the left L2 and L3 transverse processes. Stable multilevel degenerative changes of varying severity in the visualized spine. No acute fracture. Soft tissues: Mild left gluteal subcutaneous contusion. CT/CT chest abdpel w/*[id number] IMPRESSION: 1. Deformities of the left 5th and 6 costochondral junctions that are new compared with the prior CT scan. There is no surrounding soft tissue swelling, it is uncertain whether this is related to the patient's current trauma. Recommend correlation with symptoms of pain in these areas. 2. Dependent atelectasis in the lungs bilaterally. 3. Noncalcified nodule in the right upper lobe with an average measurement of 5 mm is stable compared with 05/17/2020. Stable pulmonary nodule(s) for IMPRESSION: 1. Mild left gluteal subcutaneous contusion. 2. Incidental/nonacute findings are listed in the report.
--- NOTE | 2023-02-10 18:34 | CTR_ITS ---
PROCEDURE INFORMATION: Exam: CT Cervical Spine Without Contrast Exam date and time: 02/10/2023 6:52 PM Age: 67 years old Clinical indication: Injury or trauma; Other: Trampled; Blunt trauma; Additional info: Trampled by cow, loc TECHNIQUE: Imaging protocol: Computed tomography of the cervical spine without contrast. Radiation optimization: All CT scans at this facility use at least one of these dose optimization techniques: automated exposure control; mA and/or kV adjustment per patient size (includes targeted exams where dose is matched to clinical indication); or iterative reconstruction. REPORTING DATA: Count of CT and Cardiac NM exams in prior 12 months: This patient has received 0 known CTs and 0 known cardiac nuclear medicine studies in the 12 months prior to the current study. COMPARISON: CT chest w con* [id number] 05/17/2020 1:38 PM RADIATION DOSE METRICS: Total DLP (mGy-cm): 283 FINDINGS: Bones/joints: Multilevel degenerative disc space narrowing and productive degenerative endplate changes. C2-C3: No significant disc bulge or herniation. No severe spinal canal stenosis. No significant neural foraminal narrowing. C3-C4: No significant disc bulge or herniation. No severe spinal canal stenosis. No significant neural foraminal narrowing. C4-C5: No significant disc bulge or herniation. No severe spinal canal stenosis. No significant neural foraminal narrowing. C5-C6: No significant disc bulge or herniation. No severe spinal canal stenosis. No significant neural foraminal narrowing. C6-C7: No significant disc bulge or herniation. No severe spinal canal stenosis. No significant neural foraminal narrowing. C7-T1: No significant disc bulge or herniation. No severe spinal canal stenosis. No significant neural foraminal narrowing. Lungs: Lung apices are normal. Vasculature: Carotid artery atherosclerotic calcifications. Soft tissues: Unremarkable. CT/CT cervical spin wo con* [id number] IMPRESSION: 1. Negative for fracture or dislocation. 2. Multilevel degenerative disc space narrowing and productive degenerative endplate changes.
[2023-02-10] MEDS: iohexol 350 mg/mL 500 mL Btl (per mL) IV (19:08)
[2023-02-10 19:15] VITALS: RESP 18
[2023-02-10] MEDS: morphine 4 mg/mL SDV 1 mL IVP (19:15)
[2023-02-10] MEDS: ondansetron 2 mg/ML SDV 2 mL 4 MG IVP (19:16)
[2023-02-10] MEDS: tetanus-dipt-pertussis 0.5 mL SDV IM (19:16)
[2023-02-10 19:25] VITALS: BP 153/71; PULSE 60; RESP 18; O2SAT 95
[2023-02-10] MEDS: ketorolac 30 mg/mL INJ 15 MG IVP (19:58)
[2023-02-10 21:00] VITALS: BP 110/61; PULSE 67; RESP 18; O2SAT 92
== END 2023-02-10 21:09 | disposition home or self-care (01) ==
PROVIDERS: Emergency Provider Emergency Medicine; PCP Internal Medicine
DX: S06.0X1A Concussion with loss of consciousness of 30 minutes or less, initial encounter (principal); S00.93XA Contusion of unspecified part of head, initial encounter; F17.210 Nicotine dependence, cigarettes, uncomplicated; W55.22XA Struck by cow, initial encounter; Z23 Encounter for immunization; T14.8XXA Other injury of unspecified body region, initial encounter
CPT/HCPCS: 70450; 71260; 72125; 73552; 74177; 90471; 90715; 96374; 96375; 99285; J1885; J2270; J2405; Q9967

== ENCOUNTER → 2023-06-10 13:05 | Outpatient (BNVA) | payer MEDICARE, SELFPAY | PROVIDERS: PCP Nurse Practitioner; Visit Provider Internal Medicine | DX: M06.9 Rheumatoid arthritis, unspecified (principal); E03.9 Hypothyroidism, unspecified; Z79.899 Other long term (current) drug therapy | CPT/HCPCS: 99203 ==

== ENCOUNTER → 2023-10-01 11:30 | Outpatient (BNVA) | payer MEDICARE, SELFPAY | PROVIDERS: PCP Nurse Practitioner; Visit Provider Internal Medicine | DX: M06.9 Rheumatoid arthritis, unspecified (principal); Z79.899 Other long term (current) drug therapy; E03.9 Hypothyroidism, unspecified | CPT/HCPCS: 99214 ==

== ENCOUNTER → 2023-10-06 10:55 | Outpatient (BNVA) | payer MEDICARE, SELFPAY | PROVIDERS: PCP Nurse Practitioner; Visit Provider Nurse Practitioner | DX: R05.3 Chronic cough (principal) | CPT/HCPCS: 71046 ==

== ENCOUNTER → 2023-12-28 13:55 | Outpatient (BNVA) | payer MEDICARE, SELFPAY | PROVIDERS: PCP Nurse Practitioner; Visit Provider Internal Medicine Cardiovascular Disease | DX: R00.2 Palpitations (principal); R00.1 Bradycardia, unspecified; R00.0 Tachycardia, unspecified | CPT/HCPCS: 93225; 99203 ==

== ENCOUNTER 2024-01-14 12:20 | Outpatient (CLI) | payer MEDICARE, SELFPAY ==
--- NOTE | 2024-01-14 12:30 | USCV_ITS ---
Lucius Leavitt Age: 68 Gender: M : 1955 Exam Date: 01/14/2024 12:51 Ordering Phys: Uriah Payne MD ([email or web address]) Technologist: CT Exam Location: [facility] [place] Indication: BP: / HR: 68 Rhythm: Sinus Technical Quality: Adequate MEASUREMENTS (Male / Female) Normal Values 2D ECHO LVOT Diameter 2.4 cm LV Ejection Fraction MOD 2C 55.2 % LV Ejection Fraction 2C AL 55.7 % LA Diameter 3.4 cm LA Sys Volume AL 53.4 cm cubed LA Sys Volume Index AL 23.9 cm cubed/m squared Aorta at Sinotubular Diameter 2.9 cm IVC Diameter 1.7 cm M-MODE LA Ao Ratio MM 1.3 AV Cusp Separation MM 1.4 cm DOPPLER AV Peak Velocity 310.0 cm/s LVOT Peak Velocity 107.0 cm/s AV Area Cont Eq vti 1.5 cm squared AV Area Cont Eq pk 1.5 cm squared MV Peak Velocity 411.0 cm/s MV Area PHT 4.3 cm squared Mitral E to A Ratio 0.8 TV Peak Velocity 220.0 cm/s TR Peak Velocity 231.0 cm/s TR Peak Gradient 21.3 mmHg TV Peak E Velocity 70.0 cm/s Right Atrial Pressure 3.0 mmHg Pulmonary Artery Systolic Pressu 24.3 mmHg PV Peak Velocity 107.5 cm/s FINDINGS Left Ventricle Moderate left ventricular hypertrophy. Normal LV size ejection fraction of 55%. Grade I/IV diastolic dysfunction (abnormal relaxation filling pattern), normal to mildly elevated filling pressures. Right Ventricle The right ventricle is normal in size and function. Right Atrium The right atrium is normal in size. Left Atrium The left atrium is normal in size. Mitral Valve Mild mitral valve regurgitation. Aortic Valve Mild aortic valve regurgitation. Mild aortic valve stenosis, mean gradient 22 mmHg, ABDULAZIZ 1.5 cm squared. Tricuspid Valve Trace tricuspid valve regurgitation. Pulmonic Valve No gross abnormalities noted Pericardium Normal pericardium without effusion. Aorta Normal ascending aorta dimension. IVC The inferior vena cava appears normal. CONCLUSIONS Moderate left ventricular hypertrophy. Normal LV size ejection fraction of 55%. Grade I/IV diastolic dysfunction (abnormal relaxation filling pattern), normal to mildly elevated filling pressures. Mild mitral valve regurgitation. Mild aortic valve regurgitation. Mild aortic valve stenosis, mean gradient 22 mmHg, ABDULAZIZ 1.5 cm squared. Trace tricuspid valve regurgitation. Estimated pulmonary artery peak systolic pressure within normal limits There is no pericardial effusion. There are no intracardiac masses. Compared to the study from 06/14/2019, there may not be a significant change Dr Daisy Stone MD FAC (Electronically Signed) Final Date: 18 Jan 2024 08:32 S
== END 2024-01-14 12:21 | disposition home or self-care (01) ==
LOC: RAD 12:20
PROVIDERS: PCP Nurse Practitioner; Visit Provider Internal Medicine Cardiovascular Disease
DX: I08.3 Combined rheumatic disorders of mitral, aortic and tricuspid valves (principal); I49.9 Cardiac arrhythmia, unspecified; R00.2 Palpitations; R60.9 Edema, unspecified
CPT/HCPCS: 93306